=== PATIENT | male | born 1985 | race African-American/Black ===

== ENCOUNTER 2016-07-14 03:26 | Emergency (ER) | payer OTHER ==
[~2016-07-14] VITALS: Ht 193 cm; Wt 77.1 kg
[2016-07-14 03:40] VITALS: BP 122/92
== END 2016-07-14 05:29 | disposition home or self-care (01) ==
LOC: ER 03:31
DX: F41.9 Anxiety disorder, unspecified (principal)
CPT/HCPCS: A4606; Z7502; Z7610